=== PATIENT | female | born 1960 | race Caucasian/White ===

== ENCOUNTER 2016-08-11 11:57 | Emergency (ER) | payer OTHER ==
[2016-08-11 14:19] VITALS: BP 145/67
== END 2016-08-11 14:19 | disposition home or self-care (01) ==
LOC: ED 11:57
DX: S62.635A Displaced fracture of distal phalanx of left ring finger, initial encounter for closed fracture (principal); S61.213A Laceration without foreign body of left middle finger without damage to nail, initial encounter; W29.8XXA Contact with other powered hand tools and household machinery, initial encounter; Y93.89 Activity, other specified; Y99.8 Other external cause status; Y92.89 Other specified places as the place of occurrence of the external cause
CPT/HCPCS: 90715; J0690; J2001